=== PATIENT | male | born 1995 | race Caucasian/White ===

== ENCOUNTER 2024-12-13 11:20 | Emergency (ER) | payer OTHER, BC ==
[~2024-12-13] VITALS: Ht 167.6 cm; Wt 70.9 kg
[2024-12-13 12:32] VITALS: BP 150/78
== END 2024-12-13 12:36 | disposition home or self-care (01) ==
LOC: ED 11:20
DX: S46.912A Strain of unspecified muscle, fascia and tendon at shoulder and upper arm level, left arm, initial encounter (principal); X50.0XXA Overexertion from strenuous movement or load, initial encounter
CPT/HCPCS: 73030; 99283